=== PATIENT | male | born 1930 | race Caucasian/White ===

== ENCOUNTER 2017-11-27 19:15 | Inpatient (IN) | payer MEDICARE ==
[2017-11-27 19:59] LABS: #Basophils 0.1 thou/uL (0.0-0.2); #Eosinphils 0.1 thou/uL (0.0-0.7); #Lymphocytes 1.5 thou/uL (1.20-3.40); #Monocytes 0.6 thou/uL (0.11-0.59); #Neutrophils 6.8 thou/uL (1.40-6.50); %Basophils 0.8 % (0.0-1.0); %Eosinophils 1.3 % (0.0-10.0); %Lymphocytes 16.4 % (21.0-51.0); %Monocytes 6.2 % (0.0-10.0); %Neutrophils 75.3 % (42.0-75.0); Hemoglobin 12.3 g/dL (14.0-18.0); Mean Corpuscular HGB CONC 33.3 g/dL (32.0-36.0); Mean Corpuscular Hemoglobin 29.1 pg (27.0-31.0); Mean Corpuscular Volume 87.4 fl (80.0-94.0); Mean Platelet Volume 6.7 fL (7.4-10.4); Platelet Count 355 thou/uL (130-400); RBC Distribution Width 11.8 % (11.5-14.5); Red Blood Cell (RBC) Count 4.22 mill/uL (4.70-6.10); White Blood Cell (WBC) Count 9.1 thou/uL (4.8-10.8)
[2017-11-27 20:24] LABS: ALT (SGPT) 17 U/L (8-55); AST (SGOT) 18 U/L (5-34); Albumin 4.8 g/dL (3.4-4.8); Alkaline Phosphatase 62 U/L (40-150); Anion Gap 18 mmol/L (10-20); BUN (Urea Nitrogen) 40 mg/dL (8.4-25.7); Bilirubin, Total 0.5 mg/dL (0.2-1.2); Calc. Creatinine Clearance 0 mL/min (70-130); Carbon Dioxide 26 mmol/L (23-31); Chloride 103 mmol/L (98-107); Estimated GFR-MDRD 44; Globulin 3.4 g/dL (2.4-3.5); Glucose 144 mg/dL (83-110); Potassium 4.7 mmol/L (3.5-5.1); Protein, Total 8.2 g/dL (5.8-8.1); Sodium 142 mmol/L (136-145)
--- NOTE | 2017-11-27 20:28 | RAD ---
CHEST ONE VIEW: 11/27/17 COMPARISON: 10/29/17 HISTORY: Cough. FINDINGS: Atherosclerosis of the aorta. Normal cardiac silhouette. The pulmonary vessels and hilum are normal. Costophrenic angles are clear. Chronic changes in the lung parenchyma, without consolidation or mass . No pneumothorax or osseous abnormalities. IMPRESSION: 1. No acute cardiopulmonary process. 2. Atherosclerosis. POS: [facility]
[2017-11-27 22:09] LABS: Troponin I Less than 0.010 ng/mL (< 0.028)
--- NOTE | 2017-11-27 22:11 | CT ---
NONCONTRAST HEAD CT: 11/27/17 HISTORY: Diabetes. Patient is blind. Decreased activity. TECHNIQUE: Noncontrast head CT is performed from skull base through skull vertex. COMPARISON: 10/29/17. FINDINGS: No parenchymal hemorrhage. No extra-axial hematoma. No midline shift. Age appropriate atrophy. Cortic al cordoba-white matter differentiation is preserved. No evidence of hydrocephalus. Remote insult involving the right caudate nucleus. Calvarium is intact. Adequate aeration of the sinuses and mastoid air cells. Cavernous carotid athero sclerosis noted. IMPRESSION: No acute intracranial process. POS: [facility]
--- NOTE | 2017-11-27 22:55 | CT ---
ABDOMEN CT WITHOUT CONTRAST PELVIC CT WITHOUT CONTRAST 11/27/17 HISTORY: Diabetes patient. Weakness. Decreased activity and appetite. COMPARISON: None. TECHNIQUE: Abdomen and pelvic CT performed without IV or oral contrast. Coronal reformatted images are submitted for interpretation. FINDINGS: Linear opacities in the left lower lobe likely represent scar/atelectasis. Heart size is normal. No s ignificant pericardial fluid. The visualized aorta has an overall normal caliber. There is atheroscle rosis. Gallbladder is unremarkable. Limited evaluation of solid organs by lack of IV contrast and beam attenuation secondary to the patie nt having his arms at his side. Grossly, the solid organs are unremarkable. No gastrohepatic, retrocrural or periportal lymphadenopathy. No mesenteric mass, lymphadenopathy, free air or free fluid. Bilaterally, no evidence of obstructive uropathy. Limited evaluation of the alimentary canal due to lack of oral contrast. There appears to be fecaliza tion of multiple small bowel loops in the right hemiabdomen. Ileocecal junction is unremarkable. Appe ndix is normal in caliber. Note, cecal apex is in the right upper quadrant. There is a copious amount of fecal material througho ut the colon. Large amount of fecal material in the sigmoid colon and rectum. There is mucosal promin ence of the rectum with a subtle amount of presacral fat stranding. There is concern for stercoral co litis. PELVIC CT: Urinary bladder is unremarkable. No pelvic mass, lymphadenopathy or free air. No lytic or blastic les ion in the osseous structures. IMPRESSION: 1. Copious amount of fecal material. Constipation. 2. Fecalization of small bowel loops. Obstructive process of the small bowel cannot be excluded. 3. Stercoral colitis with copious amounts of fecal material in the sigmoid colon and rectum. Results of the study discussed with Freddy Manley, 11/27/17 at 10:04 p.m. Code CR POS: [facility]
[2017-11-27] MEDS ORDERED: Piperacillin/Tazobactam 3.375 GM in Sodium Chloride 0.9% 100 ML IVPB SCH (23:15)
[2017-11-27 23:27] LABS: Bilirubin Small (Negative); Blood, Urine Negative (Negative); Clarity CLEAR (Clear); Glucose, Urine (Dipstick) Negative (Negative); Leukocyte Small (Negative); Nitrite Negative (Negative); Protein, Urine (Dipstick) 30 mg/dL (Neg-Trace); Specific Gravity, Urine 1.024 (1.002-1.036); Urobilinogen 0.2 mg/dL (0.2-1.0)
[2017-11-27 23:29] LABS: Bacteria/HPF None Seen HPF (None Seen); Hyaline Casts/LPF 0-3 HYALINE CAST LPF (0-3 Hyaline); Pathc Cast-AUWi Flag 0.43 (0-2.49); RBC/HPF 0-3 HPF (0-3); Squamous Epithelial 0-3 HPF (0-3)
[2017-11-27 23:43] LABS: Lactic Acid 1.2 mmol/L (0.5-2.2)
[2017-11-28] MEDS ORDERED: Ondansetron ODT 4 MG TAB SL PRN (01:12)
[2017-11-28] MEDS ORDERED: Ondansetron HCl/PF 4 MG/2 ML Vial IVP PRN ×2 (01:12→07:32)
[2017-11-28 01:46] VITALS: BMI 20.2
[2017-11-28] MEDS ORDERED: Sodium Chloride 0.9% 1,000 ML IV SCH (04:05)
[2017-11-28] MEDS ORDERED: Acetaminophen 325 MG TAB PO PRN (04:05)
[2017-11-28] MEDS ORDERED: Lorazepam 2 MG/ML VIAL SLOW IVP SCH (05:15)
[2017-11-28] MEDS ORDERED: Piperacillin/Tazobactam 3.375 GM in Sodium Chloride 0.9% 100 ML IVPB SCH (06:00)
[2017-11-28] MEDS ORDERED: HumaLOG 300 UNITS/3 ML VIAL SC PRN ×2 (07:32)
[2017-11-28] MEDS ORDERED: hydrALAZINE 20 MG/ML VIAL SLOW IVP PRN (07:32)
[2017-11-28] MEDS ORDERED: Loratadine 10 MG TAB PO PRN (07:32)
[2017-11-28] MEDS ORDERED: Diabetic Tussin 200 MG/10 ML UDCUP PO PRN (07:32)
[2017-11-28] MEDS ORDERED: Ondansetron ODT 4 MG TAB PO PRN (07:32)
[2017-11-28] MEDS ORDERED: Bisacodyl 10 MG SUPP PR PRN (07:32)
[2017-11-28] MEDS ORDERED: Eucerin (Mineral Oil/Petrolatum,White) 30 gm Jar TOP PRN (07:32)
[2017-11-28] MEDS ORDERED: Milk Of Magnesia 30 ML UDCUP PO PRN (07:32)
[2017-11-28] MEDS ORDERED: HYDROcodone/Acetaminophen 5/325 mg Tablet PO PRN (07:32)
[2017-11-28] MEDS ORDERED: Loperamide HCl 2 MG CAP PO PRN (07:32)
[2017-11-28] MEDS ORDERED: Artificial Tears 18 DROP/0.9 ML EA EYE PRN (07:32)
[2017-11-28] MEDS ORDERED: Fleet Enema 133 ML BOT PR PRN (07:32)
[2017-11-28] MEDS ORDERED: Dextrose 50% Abboject 50 ML SYRINGE SLOW IVP PRN (07:32)
[2017-11-28] MEDS ORDERED: Sodium Chloride 0.65% Nasal 44 ML BOT EA NARE PRN (07:32)
[2017-11-28] MEDS ORDERED: Senokot 8.6 MG TAB PO PRN (07:32)
[2017-11-28] MEDS ORDERED: Dextrose 5% in Water 1,000 ML IV PRN (07:32)
[2017-11-28] MEDS ORDERED: Chloraseptic Spray 180 ml Bottle PO PRN (07:32)
[2017-11-28] MEDS ORDERED: Mag-Al 1200 mg/1200 mg/30 ML UDCUP PO PRN (07:32)
[2017-11-28] MEDS ORDERED: Famotidine/PF 20 mg/2ml Vial SLOW IVP SCH (09:00)
[2017-11-28] MEDS: Enoxaparin Sodium 40 MG/0.4 ML SYRINGE SC SCH (09:31)
[2017-11-28] MEDS: Famotidine 40 MG/4 ML VIAL SLOW IVP SCH (09:32)
[2017-11-28] MEDS: metFORMIN 850 MG TAB PO SCH ×3 (09:32→18:05)
[2017-11-28] MEDS: Sodium Chloride 0.9% 1,000 ML IV SCH ×2 (09:33→18:05)
[2017-11-28] MEDS: Fleet Enema 133 ML BOT PR SCH ×2 (12:46→14:35)
[2017-11-28] MEDS: metroNIDAZOLE 500 MG in Premix Bag 1 BAG IVPB SCH ×2 (14:14→20:49)
--- NOTE | 2017-11-28 15:50 | HP ---
PRIMARY CARE PHYSICIAN: Dr. Ronald Chamorro. REASON FOR ADMISSION: Acute kidney failure, stercoral colitis, altered mental status, generalized we akness. HISTORY OF PRESENT ILLNESS: An 87-year-old male, who lives with his daughter. The patient was gradu ally going downhill. He appeared more confused than usual. Patient was not able to participate in d aily activities. He was having very poor appetite, and he was getting day by day more and more weak and that is why patient's daughter called paramedics and the patient was brought to ER. Patient's daughter reports that the patient has fecal incontinence for last few days, but in the [facility] room, patient had CT of the abdomen and pelvis, which showed copious amount of fecal material a s well as fecalization of small bowel loops and stercoral colitis with copious amount of fecal materi al in sigmoid colon and rectum. Patient unfortunately not able to provide any history, because of hi s level of cognitive status. Patient's daughter reported that his also admitted in our hospital in CCU. REVIEW OF SYSTEMS: All review of systems tried to review with the patient, but unable to review at t his point, because of patient's cognitive status and the review of system is also not reliable from t he patient. ALLERGIES: No known drug allergies. CURRENT HOME MEDICATIONS: Aricept 5 mg p.o. at bedtime and metformin 850 mg twice daily. PAST MEDICAL HISTORY: Alzheimer's dementia; diabetes, type 2; legal blindness; sensorineural deafnes s; history of CVA in 1978. PAST SURGICAL HISTORY: Some type of lower abdominal surgery. The patient is not able to provide any more surgical details. PAST PSYCHIATRIC HISTORY: Alzheimer's dementia. No previous psychiatric history noted in chart and patient is not able to provide any more history. SOCIAL HISTORY: Patient currently lives at home with his daughter. He is mostly ambulatory with a w alker. He denies any tobacco, alcohol, or illicit drug abuse. FAMILY HISTORY: No strong family history of premature coronary artery disease, stroke, or cancer as per patient's daughter. Patient is not able to provide any family history. EMERGENCY ROOM COURSE: Patient is given Colace 50 mg orally, magnesium citrate 4 g, Zosyn 3.375 g, a nd 2 liter IV fluid. PHYSICAL EXAMINATION: VITAL SIGNS: On arrival, blood pressure 129/72, pulse 77, respiratory rate 16, temperature 98.2, sat uration 99% on room air, weight 74.8 kilograms. GENERAL: Patient is currently alert, awake, arousable, follows simple command, no obvious acute dist ress. HEENT: Head: Normocephalic and atraumatic. Eyes: Pupils round and reactive to light. Extraocular muscle intact. ENT: Dry mucous membrane, no oral lesion, no pharyngeal erythema, no exudate. NECK: Supple, no JVD, no thyromegaly, no carotid bruit, no jugular venous distention. LUNGS: Clear to auscultation without any obvious rhonchi or rales. No wheezing, no muscles of respi ration in use. CARDIAC: S1 and S2, regular without any significant murmur. ABDOMEN: The patient does have vague abdominal discomfort on deep palpation. Bowel sounds present. No organomegaly. Nondistended, no peritoneal sign. No rigidity, no rebound. BACK EXAMINATION: Unremarkable, no CVA tenderness. EXTREMITIES: Upper extremities, passive movement of all joints are normal. Lower extremities, no ed yfn. Good peripheral pulsation. SKIN: No skin rash. HEMATOLOGICAL SYSTEM: No lymphadenopathy. PSYCHIATRIC: Flat affect. NEUROLOGIC: The patient is moving all 4 limbs. Grossly looking, patient does not have any focal bonnie rological deficit. Reflexes symmetrical. Plantar bilateral flexor. Speech normal. SIGNIFICANT LABORATORY DATA: CT brain, based on my review, no acute intracranial process. CT of the abdomen and pelvis consistent with copious amount of fecal material consistent with constipation/obs tipation, fecalization of small bowel loops as well as a stercoral colitis with copious amount of fec al material in sigmoid colon and rectum. Chest x-ray, based on my review, with no acute cardiopulmon kane process consistent with atherosclerosis. CBC: WBC 9.1, hemoglobin 12.3, platelets 355. BMP: S odium 142, potassium 4.7, chloride 103, carbon dioxide 26, anion gap 18, BUN 40, creatinine 1.50, glu cose 144, calcium 10.0. LFT: AST 18, ALT 17, alkaline phosphatase 62, albumin 4.8, lipase 6. TSH 0 .39. CK-MB 1.0, troponin I less than 0.010. Lactic acid 2.6. Urinalysis consistent with urinary tr act infection. Blood culture negative so far and stool occult blood negative. ASSESSMENT AND PLAN: 1. Encephalopathy, acute, suspecting from metabolic parameters. The patient is clinically dehydrate d and he has lactic acidosis. He does not have any focal neurological deficit and CT brain is negati ve. He does not have any obvious source of infection other than presumed urinary tract infection. W e will try to correct underlying metabolic parameters and we will also empirically treat for infectio n. 2. Stercoral colitis with severe constipation. The patient has fecal incontinence, most likely due to pseudo-diarrhea from severe constipation. Patient will require fleet enema today, and we will als o continue with the stool softener with MiraLax 17 grams p.o. b.i.d. We will start clear liquid diet . Patient does not have any obstruction at this point clinically. We will monitor clinically and we will also give him empiric antibiotic therapy with Levaquin 500 mg IV daily and Flagyl 500 mg IV q.8 hourly. The patient will be given IV fluid as well. 3. Lactic acidosis, likely related with stercoral colitis and underlying dehydration and underlying sepsis cannot be entirely excluded. We will repeat lactic acid level tomorrow. 4. Acute kidney failure, likely due to prerenal etiology from poor p.o. intake. Patient's severe co nstipation may be contributing to his poor p.o. intake. The patient will be given gentle IV fluid an d we will repeat BMP tomorrow. 5. Asymptomatic urinary tract infection. Though the patient cannot report his symptoms of urinary t ract infection, we will send urine culture and continue with empiric antibiotic therapy with Levaquin . 6. Alzheimer's dementia. The patient will be continued on Aricept 5 mg p.o. at bedtime. 7. Diabetes, type 2. We will continue metformin 850 mg twice daily and insulin as per sliding scale per protocol. Diabetic diet will be given when patient able to take p.o. intake. 8. Deep venous thrombosis prophylaxis. Lovenox 40 mg subcu daily. 9. Gastrointestinal prophylaxis, Pepcid 20 mg IV daily. 10. Code status. I spoke with the patient's daughter and the patient is FULL CODE. Patient's daugh ter is surrogate decision maker. Disposition plan based on clinical course. This patient will need [facility]. Plan of care discussed with the patient's daughter on phone.
[2017-11-28] MEDS: Polyethylene Glycol 3350 17 GM Packet PO SCH (20:39)
[2017-11-28] MEDS: Donepezil HCl 5 MG TAB PO SCH (20:39)
[2017-11-28] MEDS ORDERED: Lorazepam 2 MG/ML VIAL SLOW IVP PRN (23:17)
[2017-11-29 04:41] LABS: #Basophils 0.1 thou/uL (0.0-0.2); #Eosinphils 0.2 thou/uL (0.0-0.7); #Lymphocytes 2.1 thou/uL (1.20-3.40); #Monocytes 0.9 thou/uL (0.11-0.59); #Neutrophils 7.1 thou/uL (1.40-6.50); %Basophils 0.6 % (0.0-1.0); %Lymphocytes 19.9 % (21.0-51.0); %Neutrophils 68.6 % (42.0-75.0); Hemoglobin 10.4 g/dL (14.0-18.0); Mean Corpuscular HGB CONC 33.8 g/dL (32.0-36.0); Mean Corpuscular Hemoglobin 29.9 pg (27.0-31.0); Mean Corpuscular Volume 88.5 fl (80.0-94.0); Mean Platelet Volume 7.4 fL (7.4-10.4); Platelet Count 284 thou/uL (130-400); RBC Distribution Width 11.7 % (11.5-14.5); Red Blood Cell (RBC) Count 3.46 mill/uL (4.70-6.10); White Blood Cell (WBC) Count 10.3 thou/uL (4.8-10.8)
[2017-11-29 05:05] LABS: Anion Gap 11 mmol/L (10-20); BUN (Urea Nitrogen) 21 mg/dL (8.4-25.7); Calc. Creatinine Clearance 60 mL/min (70-130); Calcium 8.6 mg/dL (7.8-10.44); Carbon Dioxide 26 mmol/L (23-31); Chloride 106 mmol/L (98-107); Estimated GFR-MDRD 85; Glucose 94 mg/dL (83-110); Potassium 3.5 mmol/L (3.5-5.1); Sodium 139 mmol/L (136-145)
[2017-11-29] MEDS: Sodium Chloride 0.9% 1,000 ML IV SCH ×3 (05:31→21:04)
[2017-11-29] MEDS: metroNIDAZOLE 500 MG in Premix Bag 1 BAG IVPB SCH ×3 (05:31→21:02)
[2017-11-29] MEDS: Enoxaparin Sodium 40 MG/0.4 ML SYRINGE SC SCH (07:54)
[2017-11-29] MEDS: metFORMIN 850 MG TAB PO SCH ×2 (07:55→16:07)
[2017-11-29] MEDS: Famotidine 40 MG/4 ML VIAL SLOW IVP SCH (07:55)
[2017-11-29] MEDS: Polyethylene Glycol 3350 17 GM Packet PO SCH ×2 (07:56→20:05)
--- NOTE | 2017-11-29 18:33 | PDOC.PN ---
- Subjective Encounter Start Date: 11/29/17 Encounter Start Time: 15:00 Patient seen and examined. No new complaints. No overnight events. Mentation improving. Diarrhea per RN - Objective Resuscitation Status: Resuscitation Status FULL:Full Resuscitation MAR Reviewed: Yes Vital Signs & Weight: Vital Signs (12 hours) Temp Pulse Resp BP Pulse Ox 11/29/17 16:23 98.0 F 80 16 178/83 H 95 11/29/17 12:00 97.4 F L 67 16 164/80 H 97 11/29/17 08:00 97.6 F 70 18 97 11/29/17 07:46 97.6 F 70 18 154/82 H 97 Weight Admit Weight 149 lb 3.2 oz Weight 149 lb 3.2 oz I&O: 11/28/17 11/29/17 11/30/17 06:59 06:59 06:59 Intake Total 200 2065 1334 Output Total 220 100 Balance 200 1845 1234 Result Diagrams: 11/29/17 03:35 11/29/17 03:35 Additional Labs: Accuchecks 11/29/17 11/29/17 11/29/17 16:23 11:41 04:30 POC Glucose 111 H 100 96 11/28/17 11/28/17 19:42 04:34 POC Glucose 137 H 96 Radiology Reviewed by me: Yes (CT abd - constipation/colitis) Phys Exam - Physical Examination Constitutional: NAD HEENT: moist MMs Neck: no nodes, no JVD Respiratory: no wheezing, no rhonchi Cardiovascular: RRR, no rub no heaves/pulsations Gastrointestinal: soft, no distention, positive bowel sounds mild gen tenderness, no rebound/guarding Musculoskeletal: no edema Neurological: moves all 4 limbs Psychiatric: normal affect Deviation from normal: Neuro/Psych - Exam limited due to current cogniton Skin: no rash Dx/Plan - Plan 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 Toxic metabolic Encephalopathy - multifactorial 2. Stercoral colitis due to severe constipation 3. EMERY on CKD 2 / Lactic acidosis - improving 4. ?UTI - cultures negative so far 5. DM2 6. Alzheimers dementia 7. Swallow dysfunction / Chronic Anemia PLAN: * Cont Atbx * Cont IV fluids * Cont other meds as below * SNF Eval in progress * Cont sliding scale * Check stool for Cdiff Review of Systems - Review of Systems Respiratory: negative: Cough, Dry, Shortness of Breath, Hemoptysis, SOB with Excertion, Pleuritic Pain, Sputum, Wheezing Cardiovascular: negative: chest pain, palpitations, orthopnea, paroxysmal nocturnal dyspnea, edema, light headedness, other - Medications/Allergies Allergies/Adverse Reactions: Allergies Allergy/AdvReac Type Severity Reaction Status Date / Time No Known Drug Allergies Allergy Verified 11/28/17 01:22 Medications: Current Medications Acetaminophen (Tylenol) 650 mg PO Q4H PRN PRN Reason: Headache/Fever or Pain Al Hydroxide/Mg Hydroxide (Maalox) 30 ml PO Q6H PRN PRN Reason: Heartburn or Indigestion Artificial Tears (Tears Naturale) 0 drop EA EYE PRN PRN PRN Reason: Dry Eyes Bisacodyl (Dulcolax) 10 mg UT Q24H PRN PRN Reason: Constipation Dextrose/Water (Dextrose 50%) 25 gm SLOW IVP PRN PRN PRN Reason: Hypoglycemia Donepezil HCl (Aricept) 5 mg PO HS COUNT INCLUDES THE [facility] Last Admin: 11/28/17 20:39 Dose: Not Given Enoxaparin Sodium (Lovenox) 40 mg SC 0900 COUNT INCLUDES THE [facility] Last Admin: 11/29/17 07:54 Dose: 40 mg Famotidine (Pepcid) 20 mg PO BID COUNT INCLUDES THE [facility] Glucagon (Glucagon) 1 mg IM PRN PRN PRN Reason: Hypoglycemia Guaifenesin (Robitussin Sf) 200 mg PO Q4H PRN PRN Reason: Cough Hydralazine HCl (Apresoline) 10 mg SLOW IVP Q4H PRN PRN Reason: Systolic BP > 180 Dextrose/Water (D5w) 1,000 mls @ 0 mls/hr IV .Q0M PRN; As Directed PRN Reason: Hypoglycemia Levofloxacin 500 mg/ Device 100 mls @ 100 mls/hr IVPB Q24HR COUNT INCLUDES THE [facility] Last Admin: 11/29/17 07:55 Dose: 100 mls Metronidazole 500 mg/ Device 100 mls @ 100 mls/hr IVPB Q8HR COUNT INCLUDES THE [facility] Last Admin: 11/29/17 16:08 Dose: 100 mls Sodium Chloride (Normal Saline 0.9%) 1,000 mls @ 100 mls/hr IV .Q10H COUNT INCLUDES THE [facility] Last Admin: 11/29/17 13:09 Dose: Not Given Insulin Human Lispro (Humalog) 0 units SC .MODERATE SLIDING SC PRN PRN Reason: Moderate Correctional Scale Insulin Human Lispro (Humalog) 0 units SC .BEDTIME SLIDING SC PRN PRN Reason: Bedtime Correctional Scale Loperamide HCl (Imodium) 2 mg PO PRN PRN PRN Reason: Diarrhea/Loose Stools Loratadine (Claritin) 10 mg PO DAILYPRN PRN PRN Reason: Sinus Symptoms Magnesium Hydroxide (Milk Of Magnesium) 30 ml PO DAILYPRN PRN PRN Reason: Constipation Metformin HCl (Glucophage) 850 mg PO BID-[facility] Last Admin: 11/29/17 16:07 Dose: 850 mg Mineral Oil/White Petrolatum (Eucerin Cream) 0 gm TOP BIDPRN PRN PRN Reason: Dry Skin Ondansetron HCl (Zofran Odt) 4 mg PO Q6H PRN PRN Reason: Nausea/Vomiting Ondansetron HCl (Zofran) 4 mg IVP Q6H PRN PRN Reason: Nausea/Vomiting Phenol (Chloraseptic [place] 180 Ml Bot) 0 ml PO PRN PRN PRN Reason: Sore Throat Polyethylene Glycol (Miralax) 17 gm PO BID COUNT INCLUDES THE [facility] Last Admin: 11/29/17 07:56 Dose: Not Given Saccharomyces Boulardii (Florastor) 250 mg PO DAILY COUNT INCLUDES THE [facility] Senna (Senokot) 2 tab PO HSPRN PRN PRN Reason: Constipation Sodium Chloride (Dickens Nasal [place] 0.65%) 0 ml EA NARE QIDPRN PRN PRN Reason: Nasal Congestion Sodium Chloride (Flush - Normal Saline) 10 ml IVF Q12HR COUNT INCLUDES THE [facility] Last Admin: 11/29/17 07:55 Dose: 10 ml Sodium Chloride (Flush - Normal Saline) 10 ml IVF PRN PRN PRN Reason: Saline Flush
[2017-11-29] MEDS: Donepezil HCl 5 MG TAB PO SCH (20:04)
[2017-11-29] MEDS: Famotidine 20 MG TAB PO SCH (20:04)
[2017-11-30] MEDS: Acetaminophen 325 MG TAB PO PRN ×3 (00:07→23:11)
[2017-11-30 04:55] LABS: Magnesium 1.2 mg/dL (1.6-2.6); Potassium 3.5 mmol/L (3.5-5.1)
[2017-11-30] MEDS: metroNIDAZOLE 500 MG in Premix Bag 1 BAG IVPB SCH ×3 (06:23→20:03)
[2017-11-30] MEDS: Saccharomyces boulardii 250 MG CAP PO SCH (08:04)
[2017-11-30] MEDS: Famotidine 20 MG TAB PO SCH ×2 (08:04→20:04)
[2017-11-30] MEDS: metFORMIN 850 MG TAB PO SCH ×2 (08:04→17:13)
[2017-11-30] MEDS: Enoxaparin Sodium 40 MG/0.4 ML SYRINGE SC SCH (08:20)
[2017-11-30] MEDS: Polyethylene Glycol 3350 17 GM Packet PO SCH ×2 (08:38→20:05)
[2017-11-30] MEDS ORDERED: Magnesium Sulfate 3 GM, Admixture Fee 1 EACH in Sodium Chloride 0.9% 100 ML IVPB SCH (09:45)
[2017-11-30] MEDS: Sodium Chloride 0.9% 1,000 ML IV SCH ×2 (11:15→20:05)
[2017-11-30] MEDS: Donepezil HCl 5 MG TAB PO SCH (20:04)
--- NOTE | 2017-11-30 20:57 | PDOC.PN ---
- Subjective Encounter Start Date: 11/30/17 Encounter Start Time: 15:00 Patient seen and examined. No new complaints. No overnight events. No more diarrhea - Objective Resuscitation Status: Resuscitation Status FULL:Full Resuscitation MAR Reviewed: Yes Vital Signs & Weight: Vital Signs (12 hours) Temp Pulse Resp BP BP Pulse Ox 11/30/17 20:00 98.1 F 76 18 148/73 H 95 11/30/17 17:13 74 180/77 H 11/30/17 17:00 97.9 F 76 29 H 180/77 H 98 11/30/17 12:11 97.7 F 65 16 112/58 L 96 Weight Admit Weight 149 lb 3.2 oz Weight 149 lb 3.2 oz I&O: 11/29/17 11/30/17 12/01/17 06:59 06:59 06:59 Intake Total 2065 2894 1800 Output Total 220 200 Balance 1845 2694 1800 Result Diagrams: 11/29/17 03:35 11/30/17 04:13 Additional Labs: Accuchecks 11/30/17 11/30/17 11/30/17 17:12 11:18 04:37 POC Glucose 114 H 188 H 110 11/29/17 20:15 POC Glucose 108 Phys Exam - Physical Examination Constitutional: NAD Respiratory: no wheezing, no rhonchi Cardiovascular: RRR, no rub Gastrointestinal: soft, non-tender, positive bowel sounds Musculoskeletal: no edema Dx/Plan - Plan plan discussed w/ family, 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 Toxic metabolic Encephalopathy - multifactorial 2. Stercoral colitis due to severe constipation 3. EMERY on CKD 2 / Lactic acidosis - improving 4. ?UTI - cultures negative so far 5. DM2 - on sliding scale 6. Alzheimers dementia 7. Swallow dysfunction / Chronic Anemia / Hypomagnessemia PLAN: * Cont IV fluids - reduce to 75 ml/hr * SNF Eval in progress * stool for Cdiff - no sample sent due to no BM * Cont Atbx * Cont other meds as below * DC planning * Cont therapy * AM labs * Replace Magnessium Review of Systems - Review of Systems Respiratory: negative: Cough, Dry, Shortness of Breath, Hemoptysis, SOB with Excertion, Pleuritic Pain, Sputum, Wheezing Cardiovascular: negative: chest pain, palpitations, orthopnea, paroxysmal nocturnal dyspnea, edema, light headedness, other - Medications/Allergies Allergies/Adverse Reactions: Allergies Allergy/AdvReac Type Severity Reaction Status Date / Time No Known Drug Allergies Allergy Verified 11/28/17 01:22 Medications: Current Medications Acetaminophen (Tylenol) 650 mg PO Q4H PRN PRN Reason: Headache/Fever or Pain Last Admin: 11/30/17 19:09 Dose: 650 mg Al Hydroxide/Mg Hydroxide (Maalox) 30 ml PO Q6H PRN PRN Reason: Heartburn or Indigestion Artificial Tears (Tears Naturale) 0 drop EA EYE PRN PRN PRN Reason: Dry Eyes Bisacodyl (Dulcolax) 10 mg DC Q24H PRN PRN Reason: Constipation Dextrose/Water (Dextrose 50%) 25 gm SLOW IVP PRN PRN PRN Reason: Hypoglycemia Donepezil HCl (Aricept) 5 mg PO HS [facility] Last Admin: 11/30/17 20:04 Dose: 5 mg Enoxaparin Sodium (Lovenox) 40 mg SC 0900 [facility] Last Admin: 11/30/17 08:20 Dose: 40 mg Famotidine (Pepcid) 20 mg PO BID [facility] Last Admin: 11/30/17 20:04 Dose: 20 mg Glucagon (Glucagon) 1 mg IM PRN PRN PRN Reason: Hypoglycemia Guaifenesin (Robitussin Sf) 200 mg PO Q4H PRN PRN Reason: Cough Hydralazine HCl (Apresoline) 10 mg SLOW IVP Q4H PRN PRN Reason: Systolic BP > 180 Last Admin: 11/30/17 17:13 Dose: 10 mg Dextrose/Water (D5w) 1,000 mls @ 0 mls/hr IV .Q0M PRN; As Directed PRN Reason: Hypoglycemia Levofloxacin 500 mg/ Device 100 mls @ 100 mls/hr IVPB Q24HR [facility] Last Admin: 11/30/17 09:02 Dose: 100 mls Metronidazole 500 mg/ Device 100 mls @ 100 mls/hr IVPB Q8HR [facility] Last Admin: 11/30/17 20:03 Dose: 100 mls Sodium Chloride (Normal Saline 0.9%) 1,000 mls @ 100 mls/hr IV .Q10H [facility] Last Admin: 11/30/17 20:05 Dose: 1,000 mls Insulin Human Lispro (Humalog) 0 units SC .MODERATE SLIDING SC PRN PRN Reason: Moderate Correctional Scale Last Admin: 11/30/17 11:31 Dose: 2 unit Insulin Human Lispro (Humalog) 0 units SC .BEDTIME SLIDING SC PRN PRN Reason: Bedtime Correctional Scale Loperamide HCl (Imodium) 2 mg PO PRN PRN PRN Reason: Diarrhea/Loose Stools Loratadine (Claritin) 10 mg PO DAILYPRN PRN PRN Reason: Sinus Symptoms Magnesium Hydroxide (Milk Of Magnesium) 30 ml PO DAILYPRN PRN PRN Reason: Constipation Metformin HCl (Glucophage) 850 mg PO BID-[facility] Last Admin: 11/30/17 17:13 Dose: 850 mg Mineral Oil/White Petrolatum (Eucerin Cream) 0 gm TOP BIDPRN PRN PRN Reason: Dry Skin Ondansetron HCl (Zofran Odt) 4 mg PO Q6H PRN PRN Reason: Nausea/Vomiting Ondansetron HCl (Zofran) 4 mg IVP Q6H PRN PRN Reason: Nausea/Vomiting Phenol (Chloraseptic [place] 180 Ml Bot) 0 ml PO PRN PRN PRN Reason: Sore Throat Polyethylene Glycol (Miralax) 17 gm PO BID [facility] Last Admin: 11/30/17 20:05 Dose: 17 gm Saccharomyces Boulardii (Florastor) 250 mg PO DAILY [facility] Last Admin: 11/30/17 08:04 Dose: 250 mg Senna (Senokot) 2 tab PO HSPRN PRN PRN Reason: Constipation Sodium Chloride (Humphre[place] Nasal [place] 0.65%) 0 ml EA NARE QIDPRN PRN PRN Reason: Nasal Congestion Sodium Chloride (Flush - Normal Saline) 10 ml IVF Q12HR [facility] Last Admin: 11/30/17 20:06 Dose: Not Given Sodium Chloride (Flush - Normal Saline) 10 ml IVF PRN PRN PRN Reason: Saline Flush
[2017-12-01] MEDS ORDERED: Sodium Chloride 0.9% 1,000 ML IV SCH (00:30)
[2017-12-01 04:04] LABS: #Basophils 0.1 thou/uL (0.0-0.2); #Eosinphils 0.2 thou/uL (0.0-0.7); #Monocytes 0.8 thou/uL (0.11-0.59); #Neutrophils 7.1 thou/uL (1.40-6.50); %Basophils 0.5 % (0.0-1.0); %Lymphocytes 19.8 % (21.0-51.0); %Monocytes 7.6 % (0.0-10.0); %Neutrophils 70.1 % (42.0-75.0); Hemoglobin 10.8 g/dL (14.0-18.0); Mean Corpuscular HGB CONC 33.7 g/dL (32.0-36.0); Mean Corpuscular Volume 88.8 fl (80.0-94.0); Platelet Count 283 thou/uL (130-400); RBC Distribution Width 11.9 % (11.5-14.5); White Blood Cell (WBC) Count 10.1 thou/uL (4.8-10.8)
[2017-12-01 04:18] LABS: ALT (SGPT) 11 U/L (8-55); AST (SGOT) 13 U/L (5-34); Albumin 3.6 g/dL (3.4-4.8); Alkaline Phosphatase 44 U/L (40-150); Anion Gap 12 mmol/L (10-20); BUN (Urea Nitrogen) 11 mg/dL (8.4-25.7); Bilirubin, Total 0.4 mg/dL (0.2-1.2); Calc. Creatinine Clearance 57 mL/min (70-130); Calcium 8.4 mg/dL (7.8-10.44); Carbon Dioxide 25 mmol/L (23-31); Chloride 109 mmol/L (98-107); Estimated GFR-MDRD 80; Globulin 2.6 g/dL (2.4-3.5); Glucose 145 mg/dL (83-110); Magnesium 1.7 mg/dL (1.6-2.6); Potassium 3.7 mmol/L (3.5-5.1); Protein, Total 6.2 g/dL (5.8-8.1); Sodium 142 mmol/L (136-145)
[2017-12-01] MEDS: metroNIDAZOLE 500 MG in Premix Bag 1 BAG IVPB SCH ×3 (05:48→20:47)
[2017-12-01] MEDS: Polyethylene Glycol 3350 17 GM Packet PO SCH ×2 (09:05→20:48)
[2017-12-01] MEDS: Enoxaparin Sodium 40 MG/0.4 ML SYRINGE SC SCH (09:06)
[2017-12-01] MEDS: Famotidine 20 MG TAB PO SCH ×2 (11:33→20:45)
[2017-12-01] MEDS: metFORMIN 850 MG TAB PO SCH ×2 (11:34→16:54)
[2017-12-01] MEDS: Saccharomyces boulardii 250 MG CAP PO SCH (11:34)
[2017-12-01] MEDS: Lisinopril 5 MG TAB PO SCH (11:34)
--- NOTE | 2017-12-01 11:38 | PDOC.PN ---
- Subjective Encounter Start Date: 12/01/17 Encounter Start Time: 09:00 -: old records requested/rev pt is lethargic, very weak, no fever Patient seen and examined. No overnight events - Objective Resuscitation Status: Resuscitation Status FULL:Full Resuscitation MAR Reviewed: Yes Vital Signs & Weight: Vital Signs (12 hours) Temp Pulse Resp BP BP Pulse Ox 12/01/17 11:34 69 170/79 H 12/01/17 08:00 97.6 F 69 20 144/66 H 97 Weight Admit Weight 149 lb 3.2 oz Weight 149 lb 3.2 oz I&O: 11/30/17 12/01/17 12/02/17 06:59 06:59 06:59 Intake Total 2894 2019 Output Total 200 3 Balance 2694 2016 Result Diagrams: 12/01/17 03:34 12/01/17 03:34 Additional Labs: Accuchecks 11/30/17 11/30/17 20:14 17:12 POC Glucose 134 H 114 H Phys Exam - Physical Examination Constitutional: NAD HEENT: PERRLA, sclera anicteric Neck: no JVD, supple Respiratory: no wheezing, no rales, no rhonchi Cardiovascular: RRR, no significant murmur, no rub Gastrointestinal: soft, non-tender, no distention, positive bowel sounds Musculoskeletal: no edema, pulses present Neurological: non-focal Lymphatic: no nodes Psychiatric: normal affect Skin: no rash, normal turgor Dx/Plan (1) Acute kidney failure Status: Acute (2) Constipation Code(s): K59.00 - CONSTIPATION, UNSPECIFIED Status: Acute (3) Encephalopathy acute Code(s): G93.40 - ENCEPHALOPATHY, UNSPECIFIED Status: Acute (4) Hypertension Code(s): I10 - ESSENTIAL (PRIMARY) HYPERTENSION Status: Acute (5) UTI (urinary tract infection) Status: Acute (6) Alzheimer's dementia Code(s): G30.9 - ALZHEIMER'S DISEASE, UNSPECIFIED; F02.80 - DEMENTIA IN OTH DISEASES CLASSD ELSWHR W/O BEHAVRL DISTURB Status: Chronic (7) Diabetes type 2, controlled Code(s): E11.9 - TYPE 2 DIABETES MELLITUS WITHOUT COMPLICATIONS Status: Chronic (8) Hypomagnesemia Code(s): E83.42 - HYPOMAGNESEMIA Status: Resolved (9) Lactic acidosis Code(s): E87.2 - ACIDOSIS Status: Resolved - Plan cont current plan of care, continue antibiotics, 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 * all culture negative so far Review of Systems - Review of Systems Other: not reliable with pt as he is lethargic today and has dementia - Medications/Allergies Allergies/Adverse Reactions: Allergies Allergy/AdvReac Type Severity Reaction Status Date / Time No Known Drug Allergies Allergy Verified 11/28/17 01:22 Medications: Current Medications Acetaminophen (Tylenol) 650 mg PO Q4H PRN PRN Reason: Headache/Fever or Pain Last Admin: 11/30/17 23:11 Dose: 650 mg Al Hydroxide/Mg Hydroxide (Maalox) 30 ml PO Q6H PRN PRN Reason: Heartburn or Indigestion Artificial Tears (Tears Naturale) 0 drop EA EYE PRN PRN PRN Reason: Dry Eyes Bisacodyl (Dulcolax) 10 mg [place] Q24H PRN PRN Reason: Constipation Dextrose/Water (Dextrose 50%) 25 gm SLOW IVP PRN PRN PRN Reason: Hypoglycemia Donepezil HCl (Aricept) 5 mg PO HS [facility] Last Admin: 11/30/17 20:04 Dose: 5 mg Enoxaparin Sodium (Lovenox) 40 mg SC 0900 [facility] Last Admin: 12/01/17 09:06 Dose: 40 mg Famotidine (Pepcid) 20 mg PO BID [facility] Last Admin: 12/01/17 11:33 Dose: 20 mg Glucagon (Glucagon) 1 mg IM PRN PRN PRN Reason: Hypoglycemia Guaifenesin (Robitussin Sf) 200 mg PO Q4H PRN PRN Reason: Cough Hydralazine HCl (Apresoline) 10 mg SLOW IVP Q4H PRN PRN Reason: Systolic BP > 180 Last Admin: 11/30/17 17:13 Dose: 10 mg Dextrose/Water (D5w) 1,000 mls @ 0 mls/hr IV .Q0M PRN; As Directed PRN Reason: Hypoglycemia Levofloxacin 500 mg/ Device 100 mls @ 100 mls/hr IVPB Q24HR [facility] Last Admin: 12/01/17 09:00 Dose: 100 mls Metronidazole 500 mg/ Device 100 mls @ 100 mls/hr IVPB Q8HR [facility] Last Admin: 12/01/17 05:48 Dose: 100 mls Insulin Human Lispro (Humalog) 0 units SC .MODERATE SLIDING SC PRN PRN Reason: Moderate Correctional Scale Last Admin: 11/30/17 11:31 Dose: 2 unit Insulin Human Lispro (Humalog) 0 units SC .BEDTIME SLIDING SC PRN PRN Reason: Bedtime Correctional Scale Lisinopril (Zestril) 5 mg PO DAILY [facility] Last Admin: 12/01/17 11:34 Dose: 5 mg Loperamide HCl (Imodium) 2 mg PO PRN PRN PRN Reason: Diarrhea/Loose Stools Loratadine (Claritin) 10 mg PO DAILYPRN PRN PRN Reason: Sinus Symptoms Magnesium Hydroxide (Milk Of Magnesium) 30 ml PO DAILYPRN PRN PRN Reason: Constipation Metformin HCl (Glucophage) 850 mg PO BID-[facility] Last Admin: 12/01/17 11:34 Dose: 850 mg Mineral Oil/White Petrolatum (Eucerin Cream) 0 gm TOP BIDPRN PRN PRN Reason: Dry Skin Ondansetron HCl (Zofran Odt) 4 mg PO Q6H PRN PRN Reason: Nausea/Vomiting Ondansetron HCl (Zofran) 4 mg IVP Q6H PRN PRN Reason: Nausea/Vomiting Phenol (Chloraseptic [place] 180 Ml Bot) 0 ml PO PRN PRN PRN Reason: Sore Throat Polyethylene Glycol (Miralax) 17 gm PO BID [facility] Last Admin: 12/01/17 09:05 Dose: Not Given Saccharomyces Boulardii (Florastor) 250 mg PO DAILY [facility] Last Admin: 12/01/17 11:34 Dose: 250 mg Senna (Senokot) 2 tab PO HSPRN PRN PRN Reason: Constipation Sodium Chloride ([place] Nasal [place] 0.65%) 0 ml EA NARE QIDPRN PRN PRN Reason: Nasal Congestion Sodium Chloride (Flush - Normal Saline) 10 ml IVF Q12HR [facility] Last Admin: 12/01/17 11:32 Dose: Not Given Sodium Chloride (Flush - Normal Saline) 10 ml IVF PRN PRN PRN Reason: Saline Flush
[2017-12-01] MEDS: Acetaminophen 325 MG TAB PO PRN ×2 (16:53→20:45)
[2017-12-01] MEDS: Donepezil HCl 5 MG TAB PO SCH (20:45)
[2017-12-01] MEDS: oxyCODONE 5 MG TAB PO PRN (22:22)
--- NOTE | 2017-12-02 05:37 | PDOC.PN ---
- Subjective Encounter Start Date: 12/02/17 Encounter Start Time: 09:45 pt is confused, mumbling, no fever - Objective Resuscitation Status: Resuscitation Status FULL:Full Resuscitation MAR Reviewed: Yes Vital Signs & Weight: Vital Signs (12 hours) Temp Pulse Resp BP Pulse Ox 12/01/17 20:00 98.1 F 73 18 161/76 H 96 Weight Admit Weight 149 lb 3.2 oz Weight 149 lb 3.2 oz I&O: 11/30/17 12/01/17 12/02/17 06:59 06:59 06:59 Intake Total 2894 2019 1350 Output Total 200 3 600 Balance 2694 2016 750 Result Diagrams: 12/01/17 03:34 12/01/17 03:34 Additional Labs: Accuchecks 12/01/17 12/01/17 12/01/17 20:54 16:30 11:38 POC Glucose 141 H 123 H 128 H Phys Exam - Physical Examination Constitutional: NAD HEENT: PERRLA, moist MMs, sclera anicteric Neck: no JVD, supple Respiratory: no wheezing, no rales, no rhonchi Cardiovascular: RRR, no significant murmur, no rub Gastrointestinal: soft, non-tender, no distention, positive bowel sounds Musculoskeletal: no edema, pulses present Neurological: moves all 4 limbs Lymphatic: no nodes Deviation from normal: demented Skin: no rash, normal turgor Dx/Plan (1) Acute kidney failure Status: Acute (2) Constipation Code(s): K59.00 - CONSTIPATION, UNSPECIFIED Status: Acute (3) Encephalopathy acute Code(s): G93.40 - ENCEPHALOPATHY, UNSPECIFIED Status: Acute (4) UTI (urinary tract infection) Status: Acute (5) Hypertension Code(s): I10 - ESSENTIAL (PRIMARY) HYPERTENSION Status: Acute (6) Alzheimer's dementia Code(s): G30.9 - ALZHEIMER'S DISEASE, UNSPECIFIED; F02.80 - DEMENTIA IN OTH DISEASES CLASSD ELSWHR W/O BEHAVRL DISTURB Status: Chronic (7) Diabetes type 2, controlled Code(s): E11.9 - TYPE 2 DIABETES MELLITUS WITHOUT COMPLICATIONS Status: Chronic (8) Hypomagnesemia Code(s): E83.42 - HYPOMAGNESEMIA Status: Resolved (9) Lactic acidosis Code(s): E87.2 - ACIDOSIS Status: Resolved - Plan cont current plan of care, plan discussed w/ family, continue antibiotics, dialysis social worker * pt seems to be baseline * daughter prefer to keep him in hospital and discharge tomorrow * medication reviewed as below * symptomatic treatment * change flagyl PO. Review of Systems - Review of Systems Other: unable to review due to dementia - Medications/Allergies Allergies/Adverse Reactions: Allergies Allergy/AdvReac Type Severity Reaction Status Date / Time No Known Drug Allergies Allergy Verified 11/28/17 01:22 Medications: Current Medications Acetaminophen (Tylenol) 650 mg PO Q4H PRN PRN Reason: Headache/Fever or Pain Last Admin: 12/02/17 06:00 Dose: 650 mg Al Hydroxide/Mg Hydroxide (Maalox) 30 ml PO Q6H PRN PRN Reason: Heartburn or Indigestion Artificial Tears (Tears Naturale) 0 drop EA EYE PRN PRN PRN Reason: Dry Eyes Bisacodyl (Dulcolax) 10 mg [place] Q24H PRN PRN Reason: Constipation Dextrose/Water (Dextrose 50%) 25 gm SLOW IVP PRN PRN PRN Reason: Hypoglycemia Donepezil HCl (Aricept) 5 mg PO HS [facility] Last Admin: 12/01/17 20:45 Dose: 5 mg Enoxaparin Sodium (Lovenox) 40 mg SC 0900 [facility] Last Admin: 12/02/17 09:39 Dose: 40 mg Famotidine (Pepcid) 20 mg PO BID [facility] Last Admin: 12/02/17 09:43 Dose: 20 mg Glucagon (Glucagon) 1 mg IM PRN PRN PRN Reason: Hypoglycemia Guaifenesin (Robitussin Sf) 200 mg PO Q4H PRN PRN Reason: Cough Hydralazine HCl (Apresoline) 10 mg SLOW IVP Q4H PRN PRN Reason: Systolic BP > 180 Last Admin: 11/30/17 17:13 Dose: 10 mg Dextrose/Water (D5w) 1,000 mls @ 0 mls/hr IV .Q0M PRN; As Directed PRN Reason: Hypoglycemia Insulin Human Lispro (Humalog) 0 units SC .MODERATE SLIDING SC PRN PRN Reason: Moderate Correctional Scale Last Admin: 11/30/17 11:31 Dose: 2 unit Insulin Human Lispro (Humalog) 0 units SC .BEDTIME SLIDING SC PRN PRN Reason: Bedtime Correctional Scale Lisinopril (Zestril) 5 mg PO DAILY [facility] Last Admin: 12/02/17 09:39 Dose: 5 mg Loperamide HCl (Imodium) 2 mg PO PRN PRN PRN Reason: Diarrhea/Loose Stools Loratadine (Claritin) 10 mg PO DAILYPRN PRN PRN Reason: Sinus Symptoms Magnesium Hydroxide (Milk Of Magnesium) 30 ml PO DAILYPRN PRN PRN Reason: Constipation Metformin HCl (Glucophage) 850 mg PO BID-[facility] Last Admin: 12/02/17 09:39 Dose: 850 mg Mineral Oil/White Petrolatum (Eucerin Cream) 0 gm TOP BIDPRN PRN PRN Reason: Dry Skin Ondansetron HCl (Zofran Odt) 4 mg PO Q6H PRN PRN Reason: Nausea/Vomiting Ondansetron HCl (Zofran) 4 mg IVP Q6H PRN PRN Reason: Nausea/Vomiting Oxycodone HCl (Oxycodone Ir) 5 mg PO Q4H PRN PRN Reason: Pain 7-10 Last Admin: 12/02/17 10:05 Dose: 5 mg Phenol (Chloraseptic [place] 180 Ml Bot) 0 ml PO PRN PRN PRN Reason: Sore Throat Polyethylene Glycol (Miralax) 17 gm PO BID [facility] Last Admin: 12/02/17 09:39 Dose: 17 gm Saccharomyces Boulardii (Florastor) 250 mg PO DAILY [facility] Last Admin: 12/02/17 09:43 Dose: 250 mg Senna (Senokot) 2 tab PO HSPRN PRN PRN Reason: Constipation Sodium Chloride ([place] Nasal [place] 0.65%) 0 ml EA NARE QIDPRN PRN PRN Reason: Nasal Congestion Sodium Chloride (Flush - Normal Saline) 10 ml IVF Q12HR [facility] Last Admin: 12/02/17 10:00 Dose: 10 ml Sodium Chloride (Flush - Normal Saline) 10 ml IVF PRN PRN PRN Reason: Saline Flush
[2017-12-02] MEDS: metroNIDAZOLE 500 MG in Premix Bag 1 BAG IVPB SCH ×2 (05:40→15:53)
[2017-12-02] MEDS: Acetaminophen 325 MG TAB PO PRN (06:00)
[2017-12-02] MEDS: oxyCODONE 5 MG TAB PO PRN ×4 (06:15→20:02)
[2017-12-02] MEDS: Polyethylene Glycol 3350 17 GM Packet PO SCH ×2 (09:39→20:03)
[2017-12-02] MEDS: Enoxaparin Sodium 40 MG/0.4 ML SYRINGE SC SCH (09:39)
[2017-12-02] MEDS: metFORMIN 850 MG TAB PO SCH ×2 (09:39→15:56)
[2017-12-02] MEDS: Lisinopril 5 MG TAB PO SCH (09:39)
[2017-12-02] MEDS: Famotidine 20 MG TAB PO SCH ×2 (09:43→20:03)
[2017-12-02] MEDS: Saccharomyces boulardii 250 MG CAP PO SCH (09:43)
[2017-12-02] MEDS: Donepezil HCl 5 MG TAB PO SCH (20:03)
[2017-12-02] MEDS: metroNIDAZOLE 500 MG TAB PO SCH (20:03)
[2017-12-03] MEDS: oxyCODONE 5 MG TAB PO PRN ×4 (05:34→19:23)
[2017-12-03] MEDS: metroNIDAZOLE 500 MG TAB PO SCH (08:36)
[2017-12-03] MEDS: Saccharomyces boulardii 250 MG CAP PO SCH (08:36)
[2017-12-03] MEDS: Famotidine 20 MG TAB PO SCH ×2 (08:37→21:18)
[2017-12-03] MEDS: Lisinopril 5 MG TAB PO SCH (08:37)
[2017-12-03] MEDS: Enoxaparin Sodium 40 MG/0.4 ML SYRINGE SC SCH (08:37)
[2017-12-03] MEDS: metFORMIN 850 MG TAB PO SCH ×2 (08:37→17:17)
[2017-12-03] MEDS: Polyethylene Glycol 3350 17 GM Packet PO SCH ×2 (08:39→21:19)
[2017-12-03] MEDS: Acetaminophen 325 MG TAB PO PRN (08:48)
--- NOTE | 2017-12-03 10:12 | PDOC.PN ---
- Subjective Encounter Start Date: 12/03/17 Encounter Start Time: 09:20 Patient seen and examined. No new complaints. No overnight events daughter bedside - Objective Resuscitation Status: Resuscitation Status FULL:Full Resuscitation MAR Reviewed: Yes Vital Signs & Weight: Vital Signs (12 hours) Temp Pulse Resp BP BP Pulse Ox 12/03/17 08:37 74 163/78 H 12/03/17 08:00 97.7 F 74 18 135/79 96 12/03/17 07:25 97.7 F 69 16 95 Weight Admit Weight 149 lb 3.2 oz Weight 149 lb 3.2 oz I&O: 12/02/17 12/03/17 12/04/17 06:59 06:59 06:59 Intake Total 1350 1450 Output Total 600 570 Balance 750 880 Result Diagrams: 12/01/17 03:34 12/01/17 03:34 Additional Labs: Accuchecks 12/03/17 12/02/17 12/02/17 04:56 20:41 16:05 POC Glucose 101 118 H 134 H 12/02/17 11:07 POC Glucose 151 H Phys Exam - Physical Examination Constitutional: NAD HEENT: PERRLA, moist MMs, sclera anicteric Neck: no nodes, no JVD, supple, full ROM Respiratory: no wheezing, no rales, no rhonchi Cardiovascular: RRR, no significant murmur, no rub Gastrointestinal: soft, non-tender, no distention, positive bowel sounds Musculoskeletal: no edema, pulses present Neurological: moves all 4 limbs Lymphatic: no nodes Psychiatric: normal affect Skin: no rash, normal turgor Dx/Plan (1) Acute kidney failure Status: Acute (2) Constipation Code(s): K59.00 - CONSTIPATION, UNSPECIFIED Status: Acute (3) Encephalopathy acute Code(s): G93.40 - ENCEPHALOPATHY, UNSPECIFIED Status: Acute (4) UTI (urinary tract infection) Status: Acute (5) Hypertension Code(s): I10 - ESSENTIAL (PRIMARY) HYPERTENSION Status: Acute (6) Alzheimer's dementia Code(s): G30.9 - ALZHEIMER'S DISEASE, UNSPECIFIED; F02.80 - DEMENTIA IN OTH DISEASES CLASSD ELSWHR W/O BEHAVRL DISTURB Status: Chronic (7) Diabetes type 2, controlled Code(s): E11.9 - TYPE 2 DIABETES MELLITUS WITHOUT COMPLICATIONS Status: Chronic (8) Hypomagnesemia Code(s): E83.42 - HYPOMAGNESEMIA Status: Resolved (9) Lactic acidosis Code(s): E87.2 - ACIDOSIS Status: Resolved - Plan cont current plan of care, plan discussed w/ family, social work therapist * DC Levaquin and flagyl * add geodon 20 mg po bid * today pt's who is in ccu, and she will be requiring terminal extubation, so family requesting to hold his discharge today * I passed this information to medical case manager * medication reviewed as below * symptomatic treatment. Review of Systems - Review of Systems Other: unable to review due to dementia - Medications/Allergies Allergies/Adverse Reactions: Allergies Allergy/AdvReac Type Severity Reaction Status Date / Time No Known Drug Allergies Allergy Verified 11/28/17 01:22 Medications: Current Medications Acetaminophen (Tylenol) 650 mg PO Q4H PRN PRN Reason: Headache/Fever or Pain Last Admin: 12/03/17 08:48 Dose: 650 mg Al Hydroxide/Mg Hydroxide (Maalox) 30 ml PO Q6H PRN PRN Reason: Heartburn or Indigestion Artificial Tears (Tears Naturale) 0 drop EA EYE PRN PRN PRN Reason: Dry Eyes Bisacodyl (Dulcolax) 10 mg [place] Q24H PRN PRN Reason: Constipation Dextrose/Water (Dextrose 50%) 25 gm SLOW IVP PRN PRN PRN Reason: Hypoglycemia Donepezil HCl (Aricept) 5 mg PO HS [facility] Last Admin: 12/02/17 20:03 Dose: 5 mg Enoxaparin Sodium (Lovenox) 40 mg SC 0900 [facility] Last Admin: 12/03/17 08:37 Dose: 40 mg Famotidine (Pepcid) 20 mg PO BID [facility] Last Admin: 12/03/17 08:37 Dose: 20 mg Glucagon (Glucagon) 1 mg IM PRN PRN PRN Reason: Hypoglycemia Guaifenesin (Robitussin Sf) 200 mg PO Q4H PRN PRN Reason: Cough Hydralazine HCl (Apresoline) 10 mg SLOW IVP Q4H PRN PRN Reason: Systolic BP > 180 Last Admin: 11/30/17 17:13 Dose: 10 mg Dextrose/Water (D5w) 1,000 mls @ 0 mls/hr IV .Q0M PRN; As Directed PRN Reason: Hypoglycemia Insulin Human Lispro (Humalog) 0 units SC .MODERATE SLIDING SC PRN PRN Reason: Moderate Correctional Scale Last Admin: 11/30/17 11:31 Dose: 2 unit Insulin Human Lispro (Humalog) 0 units SC .BEDTIME SLIDING SC PRN PRN Reason: Bedtime Correctional Scale Levofloxacin (Levaquin) 500 mg PO 0600 [facility] Last Admin: 12/03/17 05:34 Dose: 500 mg Lisinopril (Zestril) 5 mg PO DAILY [facility] Last Admin: 12/03/17 08:37 Dose: 5 mg Loperamide HCl (Imodium) 2 mg PO PRN PRN PRN Reason: Diarrhea/Loose Stools Loratadine (Claritin) 10 mg PO DAILYPRN PRN PRN Reason: Sinus Symptoms Magnesium Hydroxide (Milk Of Magnesium) 30 ml PO DAILYPRN PRN PRN Reason: Constipation Metformin HCl (Glucophage) 850 [facility]ID[facility] Last Admin: 12/03/17 08:37 Dose: 850 mg Metronidazole (Flagyl) 500 mg PO TID [facility] Last Admin: 12/03/17 08:36 Dose: 500 mg Mineral Oil/White Petrolatum (Eucerin Cream) 0 gm TOP BIDPRN PRN PRN Reason: Dry Skin Ondansetron HCl (Zofran Odt) 4 mg PO Q6H PRN PRN Reason: Nausea/Vomiting Ondansetron HCl (Zofran) 4 mg IVP Q6H PRN PRN Reason: Nausea/Vomiting Oxycodone HCl (Oxycodone Ir) 5 mg PO Q4H PRN PRN Reason: Pain 7-10 Last Admin: 12/03/17 10:09 Dose: 5 mg Phenol (Chloraseptic [place] 180 Ml Bot) 0 ml PO PRN PRN PRN Reason: Sore Throat Polyethylene Glycol (Miralax) 17 gm PO BID [facility] Last Admin: 12/03/17 08:39 Dose: 17 gm Saccharomyces Boulardii (Florastor) 250 mg PO DAILY [facility] Last Admin: 12/03/17 08:36 Dose: 250 mg Senna (Senokot) 2 tab PO HSPRN PRN PRN Reason: Constipation Sodium Chloride ([facility] Nasal [place] 0.65%) 0 ml EA NARE QIDPRN PRN PRN Reason: Nasal Congestion Sodium Chloride (Flush - Normal Saline) 10 ml IVF Q12HR [facility] Last Admin: 12/03/17 08:39 Dose: 10 ml Sodium Chloride (Flush - Normal Saline) 10 ml IVF PRN PRN PRN Reason: Saline Flush
[2017-12-03] MEDS: Donepezil HCl 5 MG TAB PO SCH (21:18)
[2017-12-03] MEDS: Ziprasidone 20 MG CAP PO SCH (21:19)
[2017-12-04] MEDS: Lisinopril 5 MG TAB PO SCH (09:12)
[2017-12-04] MEDS: Famotidine 20 MG TAB PO SCH (09:12)
[2017-12-04] MEDS: Saccharomyces boulardii 250 MG CAP PO SCH (09:12)
[2017-12-04] MEDS: metFORMIN 850 MG TAB PO SCH (09:12)
[2017-12-04] MEDS: Enoxaparin Sodium 40 MG/0.4 ML SYRINGE SC SCH (09:12)
[2017-12-04] MEDS: Polyethylene Glycol 3350 17 GM Packet PO SCH (09:13)
[2017-12-04] MEDS: oxyCODONE 5 MG TAB PO PRN (09:22)
[2017-12-04] MEDS: Ziprasidone 20 MG CAP PO SCH (09:27)
--- NOTE | 2017-12-04 12:00 | PDOC.EVN ---
Event Note - Event Note Event Note: DC SUMMARY #[id number]
[2017-12-04 12:15] VITALS: BP 147/83; TEMP 97.5
--- NOTE | 2017-12-04 16:43 | DIS ---
DATE OF ADMISSION: 11/27/2017 DATE OF DISCHARGE: 12/04/2017 ADMITTING DIAGNOSES: Acute kidney failure, colitis, altered mental status, generalized weakness, his tory of Alzheimer's, history of type 2 diabetes mellitus, history of legal blindness, history of cere brovascular accident. DISCHARGE DIAGNOSES: Acute kidney failure, improving, altered mental status is back to baseline, his tory of Alzheimer's, history of type 2 diabetes mellitus, history of legally blind, sensorineural def icit, history of cerebrovascular accident. HOSPITAL COURSE: This is an 87-year-old male who was brought in by his daughter due to gradual progr ession of his change of mental status and worsening physical condition. Patient was admitted to the Internal Medicine team and followed very closely on a daily basis by physical therapy, speech therapy , and occupational therapy as well as case management. At point in time of discharge, patient was fo und to return back to his baseline and arrangements were made for patient to go to [facility] or further management and care. Antibiotics were discontinued as no signs and symptoms of infection were noted. Patient was to follow up with PCP within 2 weeks as well as physician in [facility] within 2 weeks. Case and plan was discussed with the patient's daughter at length at point of time of discharge who understood and agreed with this plan. DISPOSITION: [facility]. MEDICATIONS: See MAR. ACTIVITY: As tolerated with assistance as appropriate. DIET: Low fat, low calorie, high fiber diet. CONDITION: Stable. PROGNOSIS: Guarded. Once again, case and plan discussed with patient's daughter at length. She understands and agrees wi th this plan.
== END 2017-12-04 15:03 | DRG 682 ==
LOC: ERS 19:15 → T4-A 23:21
PROVIDERS: ADMIT Internal Medicine; ATTEND Internal Medicine
DX: N17.9 Acute kidney failure, unspecified (principal); G92 Toxic encephalopathy; E87.2 Acidosis; E83.42 Hypomagnesemia; E11.22 Type 2 diabetes mellitus with diabetic chronic kidney disease; E86.0 Dehydration; G30.9 Alzheimer's disease, unspecified; F02.80 Dementia in other diseases classified elsewhere, unspecified severity, without behavioral disturbance, psychotic disturbance, mood disturbance, and anxiety; K52.89 Other specified noninfective gastroenteritis and colitis; K59.00 Constipation, unspecified; N18.2 Chronic kidney disease, stage 2 (mild); H54.8 Legal blindness, as defined in USA; Z86.73 Personal history of transient ischemic attack (TIA), and cerebral infarction without residual deficits; Z79.84 Long term (current) use of oral hypoglycemic drugs; Z79.899 Other long term (current) drug therapy
CPT/HCPCS: 36415; 36416; 70450; 71045; 74176; 80048; 80053; 81003; 81015; 82274; 82553; 83605; 83690; 83735; 83880; 84132; 84443; 84484; 85025; 87040; 87086; 87324; 87449; 93005; 96361; 96365; A4216; G8978-GP-CM; G8979-GP-CK; G8987-GO-CM; G8988-GO-CK; G8996-GN-CK; G8997-GN-CJ; J0360; J1650; J1956; J2060; J2543; J3475; J7050